=== PATIENT | male | born 1965 | race Caucasian/White ===

== ENCOUNTER 2020-05-30 19:11 | Emergency (ER) | payer OTHER, SELFPAY ==
--- NOTE | ~2020-05-30 | XR_ITS ---
EXAMINATION: XR chest 2V DATE: 05/30/2020 20:35 INDICATION: Syncopal episode. Right-sided chest pain. TECHNIQUE: frontal and lateral views of the chest were obtained. COMPARISON: None FINDINGS: The lungs are clear with no focal airspace opacities, pulmonary edema, pleural effusion or pneumothor ax. The cardiomediastinal silhouette is normal. Mild thoracic spondylosis. IMPRESSION: 1. No acute cardiopulmonary disease. Reviewed, dictated and finalized at location . OFFSET PRESS FEEDER
--- NOTE | ~2020-05-30 | XR_ITS ---
EXAMINATION: XR finger 4th RT min 2V DATE: 05/30/2020 21:23 INDICATION: Pain at the right fourth digit post fall TECHNIQUE: Dorsal palmar, lateral and 2 oblique views of the right fourth digit were obtained COMPARISON: None FINDINGS: Bone alignment is normal. No acute fracture. 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 Joint spaces a re normal. Soft tissues are unremarkable. IMPRESSION: 1. No acute osseous abnormality. Reviewed, dictated and finalized at location H. OLOGY INSTRUCTOR
[2020-05-30 19:25] VITALS: BP 132/87; PULSE 78; RESP 18; TEMP 36.9; O2SAT 97
[2020-05-30 19:38] VITALS: BP 137/88; PULSE 70; RESP 18; O2SAT 100
--- NOTE | 2020-05-30 19:44 | ECG_ITS ---
Measurements Intervals [place] Rate: 66 P: 51 TN: 174 QRS: 56 QRSD: 96 T: 64 QT: 373 QTc: 393 Interpretive Statements SINUS RHYTHM NORMAL ECG Electronically Signed On 05-31-2020 7:23:17 BIOPSYCHOLOGIST by Maldonado Gallardo D.O.
--- NOTE | 2020-05-30 19:50 | ED.SYNCOPE ---
HPI - Syncope General Chief Complaint: Syncope Stated Complaint: passed out at home Time Seen by Provider: 05/30/20 19:49 History of Present Illness HPI narrative: 54 yo male with h/o htn present to the ED from home after a syncopal event. He was at home in the kitchen when he began to feel light headed. He then cough hard twice and lost consciousness. He fell forward and struck his face on the floor. He denies any significant facial injury. He does have some pain in the tip of the right 4th finger. He was unconscious for about 1 minute. No prolonged confusion. He has had similar episodes twice in the past. Additionally he does have some mild pain in the right chest wall. Related Data Home Medications Medication Instructions Recorded Confirmed adalimumab [Humira Pen] 40 mg SUBCUT [id number] 05/30/20 Allergies Allergy/AdvReac Type Severity Reaction Status Date / Time No Known Allergies Allergy Unverified 05/30/20 19:59 Review of Systems Review of Systems: All systems reviewed & are unremarkable except as noted in HPI and below Constitutional: Constitutional: Denies chills and Denies fever(s) Cardiovascular: Cardiovascular: Denies chest pain Respiratory: Respiratory: Denies dyspnea Gastrointestinal: Gastrointestinal: Denies abdominal pain and Denies nausea Musculoskeletal: Musculoskeletal: Denies back pain Neurologic: Reports syncope, Denies headache(s), Denies numbness and Denies weakness PMFSH Past Medical History Medical History HTN (hypertension) Family History Family History Father Hypertension Family history of neuropathy Mother Hypertension Social History Social History Smoking status: Current every day smoker Alcohol intake: current Gender identity (if verbalized by the patient): Male Exam Const: General: no acute distress and alert Nutritional Appearance: well nourished Orientation/consciousness: patient oriented x3 HENMT: Other: mild facial bruising Eyes: Pupils: Equal, round and reactive pupils present EOM: EOMs intact bilaterally Resp: Effort & Inspection: normal respiratory effort Auscultation: wheezes scattered wheezes Cardio: Rate: regular rate Rhythm: regular rhythm GI: GI Palp: Yes Soft to palpation and No Tenderness to palpation present (GI) Skin: General skin exam: normal color Neuro: General: patient oriented x3, moves all extremities, no focal motor deficits and CN's II-XI intact bilaterally Speech: normal speech Gait exam (Neuro): Normal gait present Extrem: Other: chronic deformity of right ring finger Course Vital Signs Vital signs: Vital Signs Temperature 36.9 C 05/30/20 19:25 Pulse Rate 78 05/30/20 19:25 Respiratory Rate 18 05/30/20 19:25 Blood Pressure 132/87 05/30/20 19:25 Pulse Oximetry 97 05/30/20 19:25 Temperature 36.9 C 05/30/20 19:25 Pulse Rate 65 05/30/20 21:46 Respiratory Rate 17 05/30/20 21:46 Blood Pressure 116/76 05/30/20 21:46 Pulse Oximetry 97 05/30/20 21:46 MDM - Syncope MDM Narrative Medical decision making narrative: syncopy likely related to forceful coughing. Mild leukocytosis. No localizing symptoms to suggest infection. GCS 15 with mild trauma. N indication for neuroimaging at this time. Differential Diagnosis Differential diagnosis: Likely vasovagal syncope Medical Records Attestation: I reviewed the patient's medical records. Lab Data Attestation: I reviewed the patient's lab results. Result diagrams: 05/30/20 20:05 05/30/20 20:05 Labs: Lab Results 05/30/20 05/30/20 05/30/20 Range/Units 20:01 20:05 20:05 WBC 11.6 H (4.5-10.0) K/mm3 RBC 4.77 (4.6-6.20) M/mm3 Hgb 15.0 (14.0-18.0) g/dL Hct 44.0 (42.0-52.0) % MCV 92.2 (80-100) fl MCH 31.4 (26-34
[2020-05-30 20:17] LABS: Basophils Absolute Auto 0.1 K/mm3 (0.0-0.1); Basophils Percent Auto 0.5 % (0.2-1.2); Eosinophils Absolute Auto 0.2 K/mm3 (0-0.3); Eosinophils Percent Auto 2.1 % (0-4.4); Immature Granulocyte Absolute 0.07 K/mm3 (0.00-0.031); Immature Granulocyte Percent A 0.6 % (0-0.5); Lymphocytes Absolute Auto 2.63 K/mm3 (0.9-3.2); Lymphocytes Percent Auto 22.7 % (18.3-44.2); Mean Corpuscular HGB Conc 34.1 g/dl (32-36); Mean Corpuscular Hemoglobin 31.4 pg (26-34); Mean Corpuscular Volume 92.2 fl (80-100); Mean Platelet Volume 10.3 fl (7.4-10.4); Monocytes Absolute Auto 1.1 K/mm3 (0.1-0.6); Monocytes Percent Auto 9.7 % (2.6-8.5); Neutrophils Absolute Auto 7.5 K/mm3 (1.3-6.7); Neutrophils Percent Auto 64.4 % (45.5-73.1); Platelet Count Result 232 k/mm3 (150-375); Red Blood Count 4.77 M/mm3 (4.6-6.20); White Blood Count 11.6 K/mm3 (4.5-10.0)
[2020-05-30 20:19] VITALS: BP 128/82; PULSE 66
[2020-05-30 20:21] VITALS: BP 125/82; PULSE 70
[2020-05-30 20:22] VITALS: BP 115/76; PULSE 79
[2020-05-30 20:27] LABS: Prothrombin Time 13.3 Seconds (11.1-14.7)
[2020-05-30 20:46] LABS: Troponin I < 0.012 ng/mL (0.000-0.034)
[2020-05-30 20:54] LABS: Anion Gap 7 mmol/L (8-16); Blood Urea Nitrogen 25 mg/dL (9-20); Calcium 9.2 mg/dL (8.4-10.2); Carbon Dioxide 28 mmol/L (22-30); Chloride 105 mmol/L (98-107); Estimated CRCL calculation 111 ml/min; Estimated Glomerular Filt Rate > 60; Glucose 100 mg/dL (75-110); Potassium 3.9 mmol/L (3.4-5.0); Sodium 140 mmol/L (137-145)
[2020-05-30 21:46] VITALS: BP 116/76; PULSE 65; RESP 17; O2SAT 97
[2020-05-30] MEDS: SODIUM CHLORIDE 0.9% IV 1,000 ML 999 ML IV CONT (22:10)
== END 2020-05-30 22:50 | disposition home or self-care (01) ==
PROVIDERS: Emergency Provider Emergency Medicine
DX: R55 Syncope and collapse (principal); I10 Essential (primary) hypertension
CPT/HCPCS: 36415; 71046; 73140; 80048; 84484; 85025; 85610; 93005; 96360; 99284; J7030

== ENCOUNTER 2021-09-10 02:15 | Observation (INO) | payer OTHER, SELFPAY ==
[2021-09-10] VITALS (13 sets, daily range): BP systolic 122–157; BP diastolic 70–98; PULSE 59–79; RESP 14–22; TEMP 36.1–36.7; O2SAT 93–100; BMI 34.0
--- NOTE | ~2021-09-10 | XR_ITS ---
EXAMINATION: XR retrograde pyelo w/stent LT EXAM DATE: 09/10/2021 15:32 INDICATION: Left-sided retrograde pyelogram, stent placement. TECHNIQUE: Fluoroscopy used during XR retrograde pyelo w/stent LT performed by Dr. Laron Dubon MD, urologist. The radiologist Ayo Root M.D. dictating this report of the image(s) available wa s not present for the procedure. Total fluoroscopic time of 17 seconds. The DAP for this procedure was 0.51 mGym2. A total of 43 images sent to PACS from the exam. Cine run(s) available for review. No prior CT pelvis for comparison. FINDINGS: Left ureter was cannulated, injected. Mild left hydroureter without caliectasis. Distal as pect of the left ureter appears rather narrow but without shouldering. A double-J ureteral stent was placed. Correlate with recent prior cross-sectional imaging and procedure note. IMPRESSION: Mild left hydroureter with narrowed distal ureter, transition a few centimeters from the UVJ. Stent in position. Reviewed, dictated and finalized at location A. ET SCHEDULER
[2021-09-10] MEDS: KETOROLAC 30 MG/ML VIAL (*BKC) IV PUSH ×2 (04:23→15:07)
[2021-09-10] MEDS: KCL 20 MEQ/D5/0.45% SOD CHL 1,000 ML 100 ML IV CONT (04:26)
[2021-09-10] MEDS: MORPHINE SULFATE (*CRX) 2 MG/ML INJ IV PUSH ×4 (04:32→12:47)
--- NOTE | 2021-09-10 04:47 | ADMGEN ---
This patient, Tanner Contreras, was admitted to 3 [facility] Surg Room 330-02 aT [id number]. Patient/family oriented to hospital policies and general routines including ID bracelet, bed and alarms, visiting hours, pain management, procedures, bathroom and other care routines, personal items, smoking policy, room service/diet, and visiting hours. Information on how to activate the Rapid Response Team has been discussed. Patient/Family are encouraged to report perceived risks to care and to ask questions if they do not understand what they are told or what they should do.
[2021-09-10] MEDS: ONDANSETRON INJ 4 MG/2 ML VIAL IV PUSH (05:55)
--- NOTE | 2021-09-10 09:36 | WPDURCON ---
Assessment and Plan Assessment and plan (1) Calculus of distal left ureter: Code(s): N20.1 - Calculus of ureter Status: Acute Assessment and Plan: Obtain a UA to rule out possible UTI, he is asymptomatic of this today, but no UA was documented on his record from [facility]. Obtain a consent order for: Cystoscopy, left ureteroscopy with stone extraction, left retrograde pyelogram, possible left stent placement, possible holmium laser with Dr. Dubon. He will go to the OR this afternoon, possibly be discharged home this afternoon pending status postoperatively. Keep NPO. Urology Consult Note HPI Date Seen: 09/10/21 Requesting Physician: Laron Dubon MD Primary Care Provider: PIPE PROCESSOR PHYSICIAN Consult Narrative Narrative: Tanner Contreras is a 56 year old male who presented to [facility] ER in [place] yesterday for the 3rd time since last week. He was experiencing worsening LLQ pain that radiated to the left flank. He also c/o nausea. He was diagnosed via first ER visit with a 3mm stone, that had migrated to the left distal ureter and caused mild hydronephrosis. No other stones identified on CT scan, however BPH was mentioned. He is afebrile, denies hematuria, dysuria or difficulty with urination. His WBC is 11.6 and creatinine is normal at 1.00. His pain is severe and not decreased by oral pain meds at home. He has no prior history of kidney stones, but was seen by Dr. Plunkett in our office in 2019 for orchalgia. After reviewing his records from [facility], there was no UA documented. Review of Systems Cardiovascular: Cardiovascular: Denies chest pain Gastrointestinal: Gastrointestinal: Reports abdominal pain, Reports nausea and Denies vomiting Genitourinary: Genitourinary: Denies hematuria, Denies genital pain, Denies dysuria, Reports flank pain, Denies urinary frequency and Denies urinary hesitancy [facility] Past Medical History Medical History HTN (hypertension) Family History Family History Father Hypertension Family history of neuropathy Mother Hypertension Social History Social History Smoking packs per day: 1 Smoking cigarettes per day: 20.0 Years smoked: 30 Smoking pack-years: 30.00 Smoking status: Current every day smoker Tobacco type: cigarettes Second hand tobacco smoke exposure: Yes Alcohol intake: current Drinks per week: 6 Substance use: never Substance use type: does not use Gender identity (if verbalized by the patient): Male Spiritual care concerns: No Meds Home Medications and Allergies Home Medications Medication Instructions Recorded Confirmed Type metoprolol succinate 25 mg See Rx Instructions .ROUTE 10/19/19 09/10/21 Rx tablet,extended release 24 hr .COMPLEX #90 tablet albuterol sulfate 2 puff INHALATION 4-6XD PRN 09/10/21 09/10/21 History amlodipine 10 mg PO DAILY 09/10/21 09/10/21 History hydrocodone-acetaminophen 1 tablet PO Q6-8H PRN 09/10/21 09/10/21 History ketorolac 10 mg PO Q6-8H PRN 09/10/21 09/10/21 History ondansetron HCl 4 mg PO Q4-6H PRN 09/10/21 09/10/21 History risankizumab-rzaa [Skyrizi] See Rx Instructions .ROUTE .COMPLEX 09/10/21 09/10/21 History tamsulosin 0.4 mg PO DAILY 09/10/21 09/10/21 History Allergies Allergy/AdvReac Type Severity Reaction Status Date / Time bupropion Allergy Mild Hives Verified 09/10/21 03:47 hydrochlorothiazide Allergy Mild Other Verified 09/10/21 03:50 lisinopril Allergy Mild Fatigued Verified 09/10/21 03:51 meloxicam Allergy Mild Hives Verified 09/10/21 03:47 varenicline Allergy Mild Other Verified 09/10/21 03:52 Beta-Blockers Allergy Unknown Unknown Verified 09/10/21 03:49 (Beta-Adrenergic Bloc Vital Signs Vital Signs - 24 hr 09/10/21 03:31 09/10/21 06:00 Temperature 97.6 F 97.7 F Pulse Rate 7
[2021-09-10 11:38] LABS: Add Urine Microscopic? NO; Appearance Urine Clear (Clear); Bilirubin Urine Negative (Negative); Blood Urine Negative (Negative); Color Urine Yellow (Yellow); Glucose Urine UA Negative (Negative); Ketones Urine Negative (Negative); Leukocyte Esterase Ur Negative LEU/UL (Negative); Nitrate Urine Negative (Negative); Protein Urine Negative (Negative); Specific Grav Ur 1.016 (1.001-1.035); Urobilinogen Urine Negative mg/dL (<2.0)
[2021-09-10] MEDS: LACTATED RINGERS 1,000 ML 30 ML IV CONT (14:00)
--- NOTE | 2021-09-10 14:29 | WPDHPUPDATE1 ---
History and Physical Update Update Date/Time: 09/10/21 14:29 History and Physical has been reviewed, including an updated exam of the patient. There are NO changes in the patient's condition. Risks, benefits, and alternatives have been discussed and questions answered. Patient agrees to proceed with procedure.
--- NOTE | 2021-09-10 14:30 | WPDANESEPPF ---
Anes - Initial Pre Proc Eval Procedure: Operation Date: 09/10/21 15:00 Proposed Procedures p Cystoscopy, Left Ureteroscopy, Stone Extraction, Left Stent Placement - Laron Dubon MD Date/Time: 09/10/21 14:30 Surgeon: Laron Dubon MD Pre Op Diagnosis: kidney stones Patient Data Age: 56 Gender: M Height: 1.93 m Weight: 126.7 kg Last Vital Signs Temp 36.7 C 09/10/21 13:55 Pulse 63 09/10/21 13:55 Resp 20 09/10/21 13:55 BP 138/72 09/10/21 13:55 Pulse Ox 96 09/10/21 13:55 Allergies Allergy/AdvReac Type Severity Reaction Status Date / Time bupropion Allergy Mild Hives Verified 09/10/21 03:47 hydrochlorothiazide Allergy Mild Other Verified 09/10/21 03:50 lisinopril Allergy Mild Fatigued Verified 09/10/21 03:51 meloxicam Allergy Mild Hives Verified 09/10/21 03:47 varenicline Allergy Mild Other Verified 09/10/21 03:52 Beta-Blockers Allergy Unknown Unknown Verified 09/10/21 03:49 (Beta-Adrenergic Bloc Home Medications Medication Instructions Recorded Confirmed Type metoprolol succinate 25 mg See Rx Instructions .ROUTE 10/19/19 09/10/21 Rx tablet,extended release 24 hr .COMPLEX #90 tablet albuterol sulfate 2 puff INHALATION 4-6XD PRN 09/10/21 09/10/21 History amlodipine 10 mg PO DAILY 09/10/21 09/10/21 History hydrocodone-acetaminophen 1 tablet PO Q6-8H PRN 09/10/21 09/10/21 History ketorolac 10 mg PO Q6-8H PRN 09/10/21 09/10/21 History ondansetron HCl 4 mg PO Q4-6H PRN 09/10/21 09/10/21 History risankizumab-rzaa [Skyrizi] See Rx Instructions .ROUTE .COMPLEX 09/10/21 09/10/21 History tamsulosin 0.4 mg PO DAILY 09/10/21 09/10/21 History Laboratory Tests 09/10/21 11:29 Urine Color Yellow (Yellow) Urine Appearance Clear (Clear) Urine pH 7.0 (5.0-9.0) Ur Specific [place] 1.016 (1.001-1.035) Urine Protein Negative mg/dL mg/dL (Negative) Urine Glucose (UA) Negative mg/dL mg/dL (Negative) Urine Ketones Negative mg/dL mg/dL (Negative) Ur Blood (Man) Negative (Negative) Urine Nitrate Negative (Negative) Urine Bilirubin Negative (Negative) Urine Urobilinogen Negative mg/dL mg/dL (<2.0) Leukocyte Esterase Rfl Negative ANDREWS/UL ANDREWS/UL (Negative) Patient hx anesthesia problems: none Family hx anesthesia problems: none Results Review: All pre-operative results and documents have been reviewed as part of the pre-operative evaluation. [facility] Past Medical History Medical History (Updated 09/10/21 @ 14:30 by Rod Pruitt DO) HTN (hypertension) MARY (obstructive sleep apnea) Family History Family History Father Hypertension Family history of neuropathy Mother Hypertension Social History Social History Smoking packs per day: 1 Smoking cigarettes per day: 20.0 Years smoked: 30 Smoking pack-years: 30.00 Smoking status: Current every day smoker Tobacco type: cigarettes Second hand tobacco smoke exposure: Yes Alcohol intake: current Drinks per week: 6 Substance use: never Substance use type: does not use Gender identity (if verbalized by the patient): Male Spiritual care concerns: No Anes - Eval Final PreProcedure Day of Procedure 09/10/21 14:30 Patient weight: obese Heart: regular rate and rhythm Lungs: clear to auscultation and normal air movement Airway: Mallampati scale class II Neurological: alert and oriented Last oral intake: >/= 8 hours ASA classification: III Emergent: no Anesthetic plan: proceed Anesthesia type and monitoring: general GIVS and LMA and standard monitoring Results Review: All pre-operative results and documents have been reviewed as part of the pre-operative evaluation. Informed Consent: The patient's anesthetic plan and its attendant risks and benefits were discussed with the patient/family/POA. Questions were solic
[2021-09-10] MEDS: ceFAZolin SODIUM 1 GM VIAL 2 GM IV PUSH (15:03)
[2021-09-10] MEDS: LIDOCAINE HCL 2% GEL UROJET 10 ML PKG MUCOUS MEM (15:12)
--- NOTE | 2021-09-10 15:27 | W.PM.PROC2 ---
Procedure Note - Detailed Date of Procedure 09/10/21 Pre-op Diagnosis Left ureteral stone Post-op Diagnosis Same Procedure Performed Cystoscopy, left retrograde pyelogram, left ureteroscopy, stent placement Surgeon Laron Dubon MD Anesthesia General Indications This is a gentleman who has had 3 ER visits in 3 days. His last imaging study was on September 06. He had a 3 mm distal ureteral stone. He has failed a trial of conservative stone passage. He is here today for ureteroscopy. Understands risks of bleeding, infection, inability remove the stone, damage to the urinary tract, non presence of stone P decreased to proceed Findings Left distal ureteral stricture noted. Stone has passed Description of Procedure He has correctly identified. Informed consent obtained. From the operating room. He was given general anesthesia. He was prepped and draped in a sterile fashion. He was placed in lithotomy position. A time-out performed. He was given appropriate perioperative antibiotics. Cystoscopy revealed some prostatic hypertrophy. He had mild trabeculations. There is no other bladder abnormalities. Ureteral orifices were seen and were normal. I did retrograde pyelogram on the left. There appeared to be narrowing of the left ureter with proximal hydronephrosis. No clear stone was seen. I placed a guidewire to the kidney. I was able to dilate the ureter with the 8 dilator. There is definite resistance in the left distal ureter. I was unable to dilate with the 10. I then performed rigid ureteroscopy. He had a definite ureteral stricture in the distal left ureter. I was able to get by the stricture. I got the ureteral scope up to the mid ureter. No stone was seen. I re-examined the ureter. Again no stone was seen. I reconfirmed on CT scan that his stone was on the left. My assumption is the stone is passed and he still has discomfort due to a stricture in the left distal ureter. I decided to place a 4.8 variable length stent. Proximal coil was in the kidney. Distal coil in the bladder. The bladder was drained. He was awakened transferred to PACU in stable condition. Implants 4.8 variable length stent Estimated Blood Loss 0 Urine Output 350 Drains Yes (4.8 variable length stent) Packing No Pathology None sent Complications No immediate complications Condition Stable Disposition PACU
--- NOTE | 2021-10-03 11:48 | PM.DS ---
DS: Admitting Diagnosis Discharge Date 09/10/21 Admitting Diagnosis Left ureteral calculus DS: Discharge Diagnosis Discharge Diagnosis (1) Calculus of distal left ureter: Code(s): N20.1 - Calculus of ureter Status: Acute DS: Summary Hospital Course Hospital Course: Patient was admitted with a presumed distal left ureteral calculus and renal colic. He underwent ureteroscopy by Dr. Dubon. Dr. Dubon did not find any ureteral stones at that time and placed a stent. He did well postoperatively. He was discharged home and will follow up in approximately a week's time for stent removal. Time Spent with Patient Time attestation: Total time spent providing and/or coordinating discharge services: Discharge Plan Discharge Attending physician on discharge: Laron Dubon Consulting providers: Ayo Root ; Dinorah Abbott Discharging Clinician: Laron Dubon Anticipated Discharge Date/Time: 09/10/21 15:31 Patient Disposition: Home, Self-Care Activity: may shower Diet: as tolerated Patient Instructions: Antibiotic Form, How to Stop Smoking (GEN) Stand Alone Forms: General Discharge Information Follow-up/Referrals: Laron Dubon MD [Physician] - (Follow-up with urology in 7-10 days for stent removal [phone] I will have the office contact you to schedule) Discharge Medications: New hydrocodone-acetaminophen 5-325 mg tablet 1 tablet PO Q6H PRN (Reason: pain) Qty: 20 RF: 0 phenazopyridine [Pyridium] 200 mg tablet 200 mg PO TID PRN (Reason: pain) Qty: 30 RF: 0 oxybutynin chloride 5 mg tablet 5 mg PO TID PRN (Reason: Bladder pain) Qty: 30 RF: 0 Continued albuterol sulfate 90 mcg/actuation HFA aerosol inhaler 2 puff INHALATION 4-6XD PRN (Reason: Shortness Of Breath) RF: 0 amlodipine 10 mg tablet 10 mg PO DAILY RF: 0 hydrocodone-acetaminophen 5-325 mg tablet 1 tablet PO Q6-8H PRN (Reason: Pain) RF: 0 ketorolac 10 mg tablet 10 mg PO Q6-8H PRN (Reason: Pain) RF: 0 ondansetron HCl 4 mg tablet 4 mg PO Q4-6H PRN (Reason: Nausea) RF: 0 Skyrizi 150 mg/mL syringe See Rx Instructions .ROUTE .COMPLEX RF: 0 tamsulosin 0.4 mg capsule 0.4 mg PO DAILY RF: 0 metoprolol succinate 25 mg tablet extended release 24 hr See Rx Instructions .ROUTE .COMPLEX Qty: 90 RF: 3 Date of admission: 09/10/21 02:15 Primary Care Provider: JLMYA Admitting Provider: Laron Dubon Attending physician on admission: Peter Bailon Condition: Stable
== END 2021-09-10 18:30 | disposition home or self-care (01) ==
PROVIDERS: Nurse Practitioner Adult Health; Admitting Provider Urology; PCP Physician Assistant; Visit Provider Urology
PROC: (CPT 52352; principal; 2021-09-10 15:00)
DX: N13.2 Hydronephrosis with renal and ureteral calculous obstruction (principal); I10 Essential (primary) hypertension; F17.210 Nicotine dependence, cigarettes, uncomplicated; G47.33 Obstructive sleep apnea (adult) (pediatric)
CPT/HCPCS: 52332; 74420; 81003; 96374; 96375; 96376; A9270; C1769; C2617; G0378; G0379; J0690; J1100; J1885; J2250; J2270; J2405; J2704; J3010; J3480; J7120; Q9966